=== PATIENT | female | born 1995 | race Two or more races ===

== ENCOUNTER 2025-09-13 20:17 | Emergency (ER) | payer OTHER ==
[~2025-09-13] VITALS: Ht 162.6 cm; Wt 54.9 kg
[2025-09-13] MEDS ORDERED: NAPROXEN 250 MG TABLET ONE (23:29)
[2025-09-13] MEDS ORDERED: ACETAMINOPHEN ES 500 MG TABLET ONE (23:29)
[2025-09-13] MEDS ORDERED: CYCLOBENZAPRINE 10 MG TABLET ONE (23:29)
[2025-09-13 23:32] LABS: PREGNANCY TEST URINE QUAL NEGATIVE (NEGATIVE)
[2025-09-13] MEDS: NAPROXEN 250 MG TABLET PO ONE (23:57)
[2025-09-13] MEDS: CYCLOBENZAPRINE 10 MG TABLET PO ONE (23:57)
[2025-09-13] MEDS: ACETAMINOPHEN ES 500 MG TABLET PO ONE (23:57)
[2025-09-14] MEDS ORDERED: IBUP-1490 PO (01:59)
[2025-09-14] MEDS ORDERED: METH-647 PO (01:59)
[2025-09-14 02:11] VITALS: BP 105/68; TEMP 98; O2SAT 98
== END 2025-09-14 02:12 | disposition home or self-care (01) ==
LOC: ER 20:21
DX: R51.9 Headache, unspecified (principal); M54.2 Cervicalgia; V43.52XA Car driver injured in collision with other type car in traffic accident, initial encounter; Y93.89 Activity, other specified; Y92.410 Unspecified street and highway as the place of occurrence of the external cause; Y99.9 Unspecified external cause status
CPT/HCPCS: 70450-TC; 71045-TC; 72125-TC; 84703-TC